=== PATIENT | female | born 1985 | race Caucasian/White ===

== ENCOUNTER → 2017-06-15 | Outpatient (CLI) | payer BC | LOC: MOB LAB 15:37 | PROVIDERS: ATTEND Obstetrics & Gynecology | DX: N96 Recurrent pregnancy loss (principal); N97.9 Female infertility, unspecified; E34.9 Endocrine disorder, unspecified; D68.61 Antiphospholipid syndrome; N92.0 Excessive and frequent menstruation with regular cycle | CPT/HCPCS: 83001; 83520; 84443 ==

== ENCOUNTER → 2017-06-30 | Outpatient (CLI) | payer BC ==
--- NOTE | 2017-06-30 11:53 | DI ---
US PELVIC-TRANSVAGINAL,06/30/2017 10:06 AM: Clinical History: Menorrhagia with irregular cycle. Previous Exam: 11/19/15 Findings: Multiple transvaginal grayscale and color Doppler sonographic images are obtained through the pelvis, and demonstrate a normal-appearing uterus measuring 8.9 x 6.5 x 4.3 cm with an endometrial stripe me asuring 7 mm. There are a few nabothian cysts identified. The right ovary measures 5.3 x 4.2 x 2.9 cm and the left ovary measures 3.3 x 1.4 x 1.3 cm. Both demo nstrate normal arterial and venous Doppler flow. The right ovary contains a simple cyst. There is free fluid within the deep pelvis. Impression: 1. Free fluid within the deep pelvis otherwise unremarkable.
== END ==
LOC: US 10:03
PROVIDERS: ATTEND Obstetrics & Gynecology
DX: N92.0 Excessive and frequent menstruation with regular cycle (principal); N96 Recurrent pregnancy loss; N97.9 Female infertility, unspecified
CPT/HCPCS: 76830